=== PATIENT | male | born 1955 | race Caucasian/White ===

== ENCOUNTER 2018-01-13 10:55 | Observation (INO) | payer OTHER ==
--- NOTE | 2018-01-13 11:39 | EDM.PDOC ---
ED HPI GENERAL MEDICAL PROBLEM - General Chief Complaint: Back Pain or Injury Stated Complaint: BACK PAIN Time Seen by Provider: 01/13/18 11:34 Source of Information: Reports: Patient History Limitations: Reports: No Limitations - History of Present Illness INITIAL COMMENTS - FREE TEXT/NARRATIVE: HISTORY AND PHYSICAL: History of present illness: Patient is a 62-year-old male who presents to the emergency room with complaints of low back pain. 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 Since that time he has been to the walk-in clinic and has not found any relief with the over-the- counter medications he's been instructed to use. He denies any urinary or fecal incontinence associated with this back pain. Prior to today he was ambulatory. He states he feels like he could walk but does have a lot of pain with any movement. Patient states that this morning he was unable to get out of bed and called EMS. EMS gave him Zofran and Toradol via IV prior to arrival. Review of systems: As per history of present illness and below otherwise all systems reviewed and negative. Past medical history: As per history of present illness and as reviewed below otherwise noncontributory. Surgical history: As per history of present illness and as reviewed below otherwise noncontributory. Social history: No reported history of drug or alcohol abuse. Family history: As per history of present illness and as reviewed below otherwise noncontributory. Physical exam: General: Developed and well-nourished 62-year-old male. Alert and oriented. Nontoxic appearing and in no acute distress. HEENT: Atraumatic, normocephalic, pupils equal and reactive bilaterally, negative for conjunctival pallor or scleral icterus, mucous membranes moist, throat clear, neck supple, nontender, trachea midline. No drooling or trismus noted. No meningeal signs Lungs: Clear to auscultation, breath sounds equal bilaterally, chest nontender. Heart: S1S2, regular rate and rhythm without overt murmur Abdomen: Soft, nondistended, nontender. Negative for masses or hepatosplenomegaly. Negative for costovertebral tenderness. Pelvis: Stable nontender. Genitourinary: Deferred. Rectal: No urinary or fecal incontinence. Skin: Intact, warm, dry. No lesions or rashes noted. C-spine/Back: No pinpoint vertebral tenderness upon palpation. No crepitus, step -offs or obvious deformities. Does have musculoskeletal tenderness to the lumbar region bilaterally. Extremities: Atraumatic, moves all per self, negative for cords or calf pain. Neurovascular unremarkable. Neuro: Awake, alert, oriented. Cranial nerves II through XII unremarkable. Cerebellum unremarkable. Motor and sensory unremarkable throughout. Exam nonfocal. Notes: Patient is very dramatic and yelling and moaning out for help. We did give him IM Norflex to help alleviate his discomfort. Will do a CT of his lumbar spine. Reports he had no relief with the Toradol (given by EMS) or Norflex (given here) . Will give some morphine and perform some routine lab work is declining to get up and move around to assess his ambulation. 1320: Dr. Mendosa was consult on this case and is agreeable to keeping this patient for observation. Diagnostics: CBC, CMP, UA, Drug Screen, Lumbar spine CT Therapeutics: Norflex IM, Morphine Impression: Intractable low back pain Plan: MedSurg observation Definitive disposition and diagnosis as appropriate pending reevaluation and review of above. Duration: Week(s): Location: Reports: Back back Pain Score (Numeric/FACES): 9 - Related Data Allergies Allergy/AdvReac Type Severity Reaction Status Date / Time Sulfa (Sulfonamide Allergy Hives Verified 01/13/18 10:57 Antibiotics) Home Meds: Home Meds Methocarbamol 01/13/18 [History] Past Medical History Cardiovascular History: Reports: Hypertension - Infectious Disease History Infectious Disease History: Reports: Chicken Pox Social & Family History - Family History Family Medical History: Noncontributory - Tobacco Use Smoking Status *Q: Never Smoker - Recreational Drug Use Recreational Drug Use: No ED ROS GENERAL - Review of Systems Review Of Systems: ROS reveals no pertinent complaints other than HPI. ED EXAM,LOWER BACK PAIN/INJURY - Physical Exam Exam: See Below (See dictation) Course - Vital Signs Last Recorded V/S: Last Vital Signs Temp 97.0 F 01/13/18 10:57 Pulse 51 L 01/13/18 12:24 Resp 16 01/13/18 12:24 BP 152/87 H 01/13/18 12:24 Pulse Ox 97 01/13/18 12:24 - Orders/Labs/Meds Orders: Active Orders 24 hr Category Date Time Status CBC WITH AUTO DIFF [HEME] Stat Lab 01/13/18 12:31 Ordered CMP [COMPREHENSIVE METABOLIC PN,CMP] [CHEM] Stat Lab 01/13/18 12:31 Ordered DRUG SCREEN, URINE [URCHEM] Stat Lab 01/13/18 12:57 Ordered UA W/MICROSCOPIC [URIN] Stat Lab 01/13/18 12:57 Ordered Sodium Chloride 0.9% [Normal Saline] 1,000 ml Med 01/13/18 12:30 Active IV STAT Medication Orders Sodium Chloride (Normal Saline) 1,000 mls @ 999 mls/hr IV STAT ONE Stop: 01/13/18 13:30 Labs: Laboratory Tests 01/13/18 Range/Units 12:57 Urine Color YELLOW Urine Appearance CLEAR Urine pH 5.5 (5.0-8.0) Ur Specific [place] >= 1.030 (1.001-1.035) Urine Protein NEGATIVE (NEGATIVE) mg/dL Urine Glucose (UA) NEGATIVE (NEGATIVE) mg/dL Urine Ketones NEGATIVE (NEGATIVE) mg/dL Urine Occult Blood NEGATIVE (NEGATIVE) Urine Nitrite NEGATIVE (NEGATIVE) Urine Bilirubin NEGATIVE (NEGATIVE) Urine Urobilinogen 0.2 (<2.0) EU/dL Ur Leukocyte Esterase NEGATIVE (NEGATIVE) Urine RBC 0-1 (0-2/HPF) Urine WBC 0-1 (0-5/HPF) Ur Epithelial Cells RARE (NONE-FEW) Urine Bacteria RARE (NEGATIVE) Meds: Medications Generic Name Dose Route Start Last Admin Trade Name Freq PRN Reason Stop Dose Admin Sodium Chloride 1,000 mls @ 999 mls/hr 01/13/18 12:30 Normal Saline IV 01/13/18 13:30 STAT ONE Discontinued Medications Generic Name Dose Route Start Last Admin Trade Name Freq PRN Reason Stop Dose Admin Morphine Sulfate 4 mg 01/13/18 12:16 01/13/18 12:20 Morphine IVPUSH 01/13/18 12:17 4 mg ONETIME ONE Administration Morphine Sulfate Confirm 01/13/18 12:18 01/13/18 12:24 Morphine Administered 01/13/18 12:19 Not Given Dose 4 mg .ROUTE .STK-MED ONE Orphenadrine Citrate 60 mg 01/13/18 11:03 01/13/18 11:07 Norflex IM 01/13/18 11:04 60 mg NOW STA Administration Departure - Departure Time of Disposition: 13:18 Disposition: Refer to Observation Clinical Impression: Intractable low back pain - Discharge Information Forms: ED Department Discharge - My Orders Last 24 Hours: My Active Orders 01/13/18 12:30 Sodium Chloride 0.9% [Normal Saline] 1,000 ml IV STAT 01/13/18 12:31 CBC WITH AUTO DIFF [HEME] Stat CMP [COMPREHENSIVE METABOLIC PN,CMP] [CHEM] Stat 01/13/18 12:57 DRUG SCREEN, URINE [URCHEM] Stat UA W/MICROSCOPIC [URIN] Stat - Assessment/Plan Last 24 Hours: My Active Orders 01/13/18 12:30 Sodium Chloride 0.9% [Normal Saline] 1,000 ml IV STAT 01/13/18 12:31 CBC WITH AUTO DIFF [HEME] Stat CMP [COMPREHENSIVE METABOLIC PN,CMP] [CHEM] Stat 01/13/18 12:57 DRUG SCREEN, URINE [URCHEM] Stat UA W/MICROSCOPIC [URIN] Stat
[2018-01-13] MEDS ORDERED: Morphine 4 MG/ML Syringe IVPUSH ONE (12:16)
[2018-01-13] MEDS ORDERED: Morphine 4 MG/ML Syringe ONE (12:18)
--- NOTE | 2018-01-13 12:19 | CT ---
EXAMINATION: CT lumbar spine without contrast HISTORY: Pain COMPARISON: None TECHNIQUE: Axial CT images obtained through the lumbar spine without contrast. Coronal and sagittal r econstructions obtained. FINDINGS: The lumbar spinal alignment is normal. The vertebral body heights and disc spaces appear we ll-maintained. There is no fracture or acute osseous abnormality. Bone mineralization is normal. Mild marginal osteophyte formation is noted. Small osteophyte disc complex noted at L5-S1. SI joints are symmetric. 3 mm nonobstructing stone within the right kidney. IMPRESSION: 1. Mild degenerative changes noted within the lumbar spine without acute findings. 2. Nonobstructing right nephrolithiasis.
[2018-01-13] MEDS ORDERED: Sodium Chloride 0.9% 1,000 ML IV ONE (12:30)
[2018-01-13] MEDS ORDERED: Ondansetron 4 MG Tab.DIS PO PRN (15:05)
--- NOTE | 2018-01-13 15:21 | PCM.HP ---
H&P History of Present Illness - General Date of Service: 01/13/18 Admit Problem/Dx: Admission Diagnosis/Problem Admission Diagnosis/Problem Intractable back pain Source of Information: Patient History Limitations: Reports: No Limitations - History of Present Illness Initial Comments - Free Text/Narative: 62-year-old male that is being admitted with intractable low back pain. 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 He had a day or so when he got slightly better following that injury but notes that over the last few days the low back pain has gotten worse to the point where he was unable to walk this morning. He called EMS and had them bring him into the ER. He denies any changes in bowel or bladder habits. He denies any numbness/tingling/weakness down into the legs bilaterally. He denies any saddle paresthesia. No prior low back surgery great patient cannot recall any other traumas. He did see a chiropractor for a low back adjustment and this did not help. He was also seen at the walk-in clinic and given a shot of Toradol and a prescription of muscle relaxants which have not helped. Patient notes that lying flat on his back relieves the pain. Sitting, standing or any other movement seems to aggravate the pain. Patient denies any fevers. He denies any neck pain or other joint pain. He denies any other acute concerns including chest pain, palpitations, shortness of breath, wheezing, cough, abdominal pain, nausea, vomiting, constipation, diarrhea. ER course: CBC, CMP, urine tox screen, UA and vital signs were all unremarkable. Patient did have a lumbar CT done and that showed degenerative changes without any acute findings. Patient was given an IV dose of morphine and an IM dose of Norflex which did help alleviate his pain. He is also given an IV fluid bolus. back Pain Score (Numeric/FACES): 9 - Related Data Allergies/Adverse Reactions: Allergies Allergy/AdvReac Type Severity Reaction Status Date / Time Sulfa (Sulfonamide Allergy Hives Verified 01/13/18 10:57 Antibiotics) Home Medications: Home Meds Methocarbamol 01/13/18 [History] Past Medical History Cardiovascular History: Reports: Hypertension - Infectious Disease History Infectious Disease History: Reports: Chicken Pox Social & Family History - Family History Family Medical History: Noncontributory - Tobacco Use Smoking Status *Q: Never Smoker - Recreational Drug Use Recreational Drug Use: No H&P Review of Systems - Review of Systems: Review Of Systems: See Below General: Reports: No Symptoms HEENT: Reports: No Symptoms Pulmonary: Reports: No Symptoms Cardiovascular: Reports: No Symptoms Gastrointestinal: Reports: No Symptoms Genitourinary: Reports: No Symptoms Musculoskeletal: Reports: Back Pain, Other (Patient cannot ambulate secondary to low back pain.) Skin: Reports: No Symptoms Psychiatric: Reports: No Symptoms Neurological: Reports: No Symptoms Hematologic/Lymphatic: Reports: No Symptoms Immunologic: Reports: No Symptoms Exam - Exam Exam: See Below - Vital Signs Vital Signs: Last Vital Signs Temp 96.9 F 01/13/18 14:50 Pulse 43 L 01/13/18 14:50 Resp 16 01/13/18 14:50 BP 138/68 01/13/18 14:50 Pulse Ox 97 01/13/18 14:50 Weight: 551 lb 2.49 oz - Exam General: Alert, Oriented, Cooperative Neck: Supple, Trachea Midline, 2 Lungs: Clear to Auscultation, Normal Respiratory Effort Cardiovascular: Regular Rate, Regular Rhythm GI/Abdominal Exam: Normal Bowel Sounds, Soft, Non-Tender, No Organomegaly, No Distention, No Abnormal Bruit, No Mass, Pelvis Stable Back Exam: Normal Inspection, Full Range of Motion, Other (Tenderness with palpation of the paraspinal muscles bilaterally. No bony defects or step-off defects appreciated.). No: CVA Tenderness (L), CVA Tenderness (R) Extremities: Normal Inspection, Normal Range of Motion, Non-Tender, No Pedal Edema, Normal Capillary Refill Peripheral Pulses: 2+: Radial (L), Radial (R), Posterior Tibial (L), Posterior Tibial (R) Skin: Warm, Dry, Intact Neuro Extensive - Mental Status: Alert, Oriented x3, Normal Mood/Affect, Normal Cognition Psychiatric: Alert, Normal Affect, Normal Mood - Patient Data Lab Results Last 24 hrs: Laboratory Results - last 24 hr 01/13/18 01/13/18 01/13/18 Range/Units 12:57 12:57 13:50 WBC 5.86 (4.0-11.0) K/uL RBC 5.02 (4.50-5.90) M/uL Hgb 15.6 (13.0-17.0) g/dL Hct 45.4 (38.0-50.0) % MCV 90.4 (80.0-98.0) fL MCH 31.1 (27.0-32.0) pg MCHC 34.4 (31.0-37.0) g/dL RDW Std Deviation 41.5 (28.0-62.0) fl RDW Coeff of Ilsa 13 (11.0-15.0) % Plt Count 180 (150-400) K/uL MPV 10.20 (7.40-12.00) fL Neut % (Auto) 59.2 (48.0-80.0) % Lymph % (Auto) 29.4 (16.0-40.0) % [place] % (Auto) 7.8 (0.0-15.0) % Eos % (Auto) 2.7 (0.0-7.0) % Baso % (Auto) 0.9 (0.0-1.5) % Neut # (Auto) 3.5 (1.4-5.7) K/uL Lymph # (Auto) 1.7 (0.6-2.4) K/uL [place] # (Auto) 0.5 (0.0-0.8) K/uL Eos # (Auto) 0.2 (0.0-0.7) K/uL Baso # (Auto) 0.1 (0.0-0.1) K/uL Nucleated RBC % 0.0 /100WBC Nucleated RBCs # 0 K/uL Sodium (136-148) mmol/L Potassium (3.5-5.1) mmol/L Chloride (98-107) mmol/L Carbon Dioxide (21.0-32.0) mmol/L BUN (7.0-18.0) mg/dL Creatinine (0.8-1.3) mg/dL Est Cr Clr Drug Dosing mL/min Estimated GFR (MDRD) ml/min Glucose (74-106) mg/dL Calcium (8.5-10.1) mg/dL Total Bilirubin (0.2-1.0) mg/dL AST (15-37) IU/L ALT (14-63) IU/L Alkaline Phosphatase (46-116) U/L Total Protein (6.4-8.2) g/dL Albumin (3.4-5.0) g/dL Globulin (2.0-3.5) g/dL Albumin/Globulin Ratio (1.3-2.8) Urine Color YELLOW Urine Appearance CLEAR Urine pH 5.5 (5.0-8.0) Ur Specific [place] >= 1.030 (1.001-1.035) Urine Protein NEGATIVE (NEGATIVE) mg/dL Urine Glucose (UA) NEGATIVE (NEGATIVE) mg/dL Urine Ketones NEGATIVE (NEGATIVE) mg/dL Urine Occult Blood NEGATIVE (NEGATIVE) Urine Nitrite NEGATIVE (NEGATIVE) Urine Bilirubin NEGATIVE (NEGATIVE) Urine Urobilinogen 0.2 (<2.0) EU/dL Ur Leukocyte Esterase NEGATIVE (NEGATIVE) Urine RBC 0-1 (0-2/HPF) Urine WBC 0-1 (0-5/HPF) Ur Epithelial Cells RARE (NONE-FEW) Urine Bacteria RARE (NEGATIVE) Urine Opiates Screen NEGATIVE (NEGATIVE) Ur Oxycodone Screen NEGATIVE (NEGATIVE) Urine Methadone Screen NEGATIVE (NEGATIVE) Ur Barbiturates Screen NEGATIVE (NEGATIVE) Ur Phencyclidine Scrn NEGATIVE (NEGATIVE) Ur Amphetamine Screen NEGATIVE (NEGATIVE) U Methamphetamines Scrn NEGATIVE (NEGATIVE) U Benzodiazepines Scrn NEGATIVE (NEGATIVE) U Cocaine Metab Screen NEGATIVE (NEGATIVE) U Marijuana (THC) Screen NEGATIVE (NEGATIVE) 01/13/18 Range/Units 13:50 WBC (4.0-11.0) K/uL RBC (4.50-5.90) M/uL Hgb (13.0-17.0) g/dL Hct (38.0-50.0) % MCV (80.0-98.0) fL MCH (27.0-32.0) pg MCHC (31.0-37.0) g/dL RDW Std Deviation (28.0-62.0) fl RDW Coeff of Ilsa (11.0-15.0) % Plt Count (150-400) K/uL MPV (7.40-12.00) fL Neut % (Auto) (48.0-80.0) % Lymph % (Auto) (16.0-40.0) % [place] % (Auto) (0.0-15.0) % Eos % (Auto) (0.0-7.0) % Baso % (Auto) (0.0-1.5) % Neut # (Auto) (1.4-5.7) K/uL Lymph # (Auto) (0.6-2.4) K/uL [place] # (Auto) (0.0-0.8) K/uL Eos # (Auto) (0.0-0.7) K/uL Baso # (Auto) (0.0-0.1) K/uL Nucleated RBC % /100WBC Nucleated RBCs # K/uL Sodium 144 (136-148) mmol/L Potassium 4.8 (3.5-5.1) mmol/L Chloride 110 H (98-107) mmol/L Carbon Dioxide 28.2 (21.0-32.0) mmol/L BUN 16 (7.0-18.0) mg/dL Creatinine 1.3 (0.8-1.3) mg/dL Est Cr Clr Drug Dosing 64.36 mL/min Estimated GFR (MDRD) 56.3 ml/min Glucose 118 H (74-106) mg/dL Calcium 8.5 (8.5-10.1) mg/dL Total Bilirubin 0.7 (0.2-1.0) mg/dL AST 24 (15-37) IU/L ALT 27 (14-63) IU/L Alkaline Phosphatase 87 (46-116) U/L Total Protein 6.4 (6.4-8.2) g/dL Albumin 3.6 (3.4-5.0) g/dL Globulin 2.8 (2.0-3.5) g/dL Albumin/Globulin Ratio 1.3 (1.3-2.8) Urine Color Urine Appearance Urine pH (5.0-8.0) Ur Specific [place] (1.001-1.035) Urine Protein (NEGATIVE) mg/dL Urine Glucose (UA) (NEGATIVE) mg/dL Urine Ketones (NEGATIVE) mg/dL Urine Occult Blood (NEGATIVE) Urine Nitrite (NEGATIVE) Urine Bilirubin (NEGATIVE) Urine Urobilinogen (<2.0) EU/dL Ur Leukocyte Esterase (NEGATIVE) Urine RBC (0-2/HPF) Urine WBC (0-5/HPF) Ur Epithelial Cells (NONE-FEW) Urine Bacteria (NEGATIVE) Urine Opiates Screen (NEGATIVE) Ur Oxycodone Screen (NEGATIVE) Urine Methadone Screen (NEGATIVE) Ur Barbiturates Screen (NEGATIVE) Ur Phencyclidine Scrn (NEGATIVE) Ur Amphetamine Screen (NEGATIVE) U Methamphetamines Scrn (NEGATIVE) U Benzodiazepines Scrn (NEGATIVE) U Cocaine Metab Screen (NEGATIVE) U Marijuana (THC) Screen (NEGATIVE) Result Diagrams: 01/13/18 13:50 01/13/18 13:50 - Problem List (1) Intractable low back pain SNOMED Code(s): 87198510108805736 ICD Code: M54.5 - LOW BACK PAIN Status: Acute Current Visit: Yes Problem List Initiated/Reviewed/Updated: Yes Orders Last 24hrs: Active Orders 24 hr Category Date Time Status Admission Status [Patient Status] [ADT] Stat ADT 01/13/18 13:19 Active Height and Weight [RC] DAILY Care 01/13/18 15:05 Ordered Intake and Output [RC] QSHIFT Care 01/13/18 15:06 Ordered Notify Provider Vital Signs [RC] ASDIRECTED Care 01/13/18 15:06 Ordered Oxygen Therapy [RC] PRN Care 01/13/18 15:05 Ordered Pulse Oximetry [RC] CONTINUOUS Care 01/13/18 15:06 Ordered Up With Assistance [RC] ASDIRECTED Care 01/13/18 15:05 Ordered VTE/DVT Education [RC] PER UNIT ROUTINE Care 01/13/18 15:05 Ordered Vital Signs [RC] Q4H Care 01/13/18 15:05 Ordered Consult to Physical Therapy [PT Evaluation and Cons 01/13/18 14:54 Active Treatment] [CONS] Routine Regular Diet [DIET] Diet 01/13/18 Breakfast Ordered DRUG SCREEN, URINE [URCHEM] Stat Lab 01/13/18 12:57 Ordered UA W/MICROSCOPIC [URIN] Stat Lab 01/13/18 12:57 Ordered Acetaminophen [Tylenol] Med 01/13/18 15:05 Ordered 650 mg PO Q4H PRN Heparin Sodium Med 01/13/18 15:15 Ordered 5,000 units SUBCUT Q12H Ondansetron [Zofran ODT] Med 01/13/18 15:05 Ordered 4 mg PO Q4H PRN Sequential Compression Device [OM.PC] Per Unit Routine Oth 01/13/18 15:09 Ordered Resuscitation Status Routine Resus Stat 01/13/18 15:05 Ordered Medication Orders Acetaminophen (Tylenol) 650 mg PO Q4H PRN PRN Reason: Pain (Mild 1-3)/fever Heparin Sodium (Porcine) (Heparin Sodium) 5,000 units SUBCUT Q12H DENISE Ondansetron HCl (Zofran Odt) 4 mg PO Q4H PRN PRN Reason: nausea, able to take PO Assessment/Plan Comment:: 62-year-old male with intractable low back pain. #1. Intractable low back pain: -Lumbar CT was done and showed degenerative changes but no acute findings. -CBC, CMP, UA, urine drug screen were all unremarkable. Patient was given IV morphine and IM Norflex in the ER which has helped lessen his low back pain. -Tylenol be available to the patient for pain management. Patient will also be started on prednisone 20 mg to help with inflammation. -PT will work with the patient and we'll follow their recommendations. DVT prophylaxis: SCDs and heparin Disposition: 1-2 days pending improvement.
[2018-01-13] MEDS: Acetaminophen 325 MG Tab PO PRN ×2 (15:26→20:15)
[2018-01-13] MEDS: Heparin Sodium 5,000 Units/ML Vial SUBCUT SCH (15:26)
[2018-01-13] MEDS: predniSONE 20 MG Tab PO SCH (15:39)
[2018-01-13] MEDS: Cyclobenzaprine 5 MG Tab PO PRN (22:40)
[2018-01-14] MEDS: Acetaminophen 325 MG Tab PO PRN ×2 (00:12→06:59)
[2018-01-14] MEDS: Heparin Sodium 5,000 Units/ML Vial SUBCUT SCH (03:52)
[2018-01-14] MEDS: predniSONE 20 MG Tab PO SCH (09:49)
[2018-01-14] MEDS: Cyclobenzaprine 5 MG Tab PO PRN (10:27)
--- NOTE | 2018-01-14 13:42 | PCM.DCSUM1 ---
Discharge Summary - Discharge Data Discharge Date: 01/14/18 Discharge Disposition: Home, Self-Care 01 Condition: Good - Patient Summary/Data Consults: Consultations 01/13/18 14:54 Consult to Physical Therapy [PT Evaluation and Treatment] [CONS] Routine Hospital Course: 62-year-old male admitted with intractable low back pain. 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 He had a day or so when he got slightly better following that injury but notes that over the last few days the low back pain has gotten worse to the point where he was unable to walk. CBC, CMP, urine tox screen, UA and vital signs were all unremarkable. Patient did have a lumbar CT done and that showed degenerative changes without any acute findings. Patient was given one dose of IV dose of morphine and an IM dose of Norflex and was monitored overnight. This morning he is ambulatory and was evaluated by physical therapy who recommended outpatient PT. Patient was discharged home. - Patient Instructions Diet: Regular Diet as Tolerated - Discharge Plan Prescriptions/Med Rec: Ibuprofen 400 mg PO Q6H #1 tablet Home Medications: Home Meds Methocarbamol 01/13/18 [History] Acetaminophen [Tylenol] 650 mg PO Q6HR PRN tablet 01/14/18 [Rx] Ibuprofen 400 mg PO Q6H #1 tablet 01/14/18 [Rx] Forms: ED Department Discharge Referrals: PCP,None [Primary Care Provider] - - Patient Data Vitals - Most Recent: Last Vital Signs Temp 36.3 C 01/14/18 11:41 Pulse 55 L 01/14/18 11:41 Resp 18 01/14/18 11:41 BP 180/100 H 01/14/18 12:00 Pulse Ox 94 L 01/14/18 11:41 Weight - Most Recent: 113.58 kg I&O - Last 24 hours: Intake & Output 01/13/18 01/14/18 01/14/18 22:59 06:59 14:59 Intake Total 450 820 Output Total 0 1120 Balance 450 -300 Lab Results - Last 24 hrs: Laboratory Results - last 24 hr 01/13/18 01/13/18 Range/Units 13:50 13:50 WBC 5.86 (4.0-11.0) K/uL RBC 5.02 (4.50-5.90) M/uL Hgb 15.6 (13.0-17.0) g/dL Hct 45.4 (38.0-50.0) % MCV 90.4 (80.0-98.0) fL MCH 31.1 (27.0-32.0) pg MCHC 34.4 (31.0-37.0) g/dL RDW Std Deviation 41.5 (28.0-62.0) fl RDW Coeff of Ilsa 13 (11.0-15.0) % Plt Count 180 (150-400) K/uL MPV 10.20 (7.40-12.00) fL Neut % (Auto) 59.2 (48.0-80.0) % Lymph % (Auto) 29.4 (16.0-40.0) % [place] % (Auto) 7.8 (0.0-15.0) % Eos % (Auto) 2.7 (0.0-7.0) % Baso % (Auto) 0.9 (0.0-1.5) % Neut # (Auto) 3.5 (1.4-5.7) K/uL Lymph # (Auto) 1.7 (0.6-2.4) K/uL [place] # (Auto) 0.5 (0.0-0.8) K/uL Eos # (Auto) 0.2 (0.0-0.7) K/uL Baso # (Auto) 0.1 (0.0-0.1) K/uL Nucleated RBC % 0.0 /100WBC Nucleated RBCs # 0 K/uL Sodium 144 (136-148) mmol/L Potassium 4.8 (3.5-5.1) mmol/L Chloride 110 H (98-107) mmol/L Carbon Dioxide 28.2 (21.0-32.0) mmol/L BUN 16 (7.0-18.0) mg/dL Creatinine 1.3 (0.8-1.3) mg/dL Est Cr Clr Drug Dosing 64.36 mL/min Estimated GFR (MDRD) 56.3 ml/min Glucose 118 H (74-106) mg/dL Calcium 8.5 (8.5-10.1) mg/dL Total Bilirubin 0.7 (0.2-1.0) mg/dL AST 24 (15-37) IU/L ALT 27 (14-63) IU/L Alkaline Phosphatase 87 (46-116) U/L Total Protein 6.4 (6.4-8.2) g/dL Albumin 3.6 (3.4-5.0) g/dL Globulin 2.8 (2.0-3.5) g/dL Albumin/Globulin Ratio 1.3 (1.3-2.8) Med Orders - Current: Current Medications Acetaminophen (Tylenol) 650 mg PO Q4H PRN PRN Reason: Pain (Mild 1-3)/fever Last Admin: 01/14/18 06:59 Dose: 650 mg Cyclobenzaprine HCl (Flexeril) 5 mg PO TID PRN PRN Reason: Pain Last Admin: 01/14/18 10:27 Dose: 5 mg Heparin Sodium (Porcine) (Heparin Sodium) 5,000 units SUBCUT Q12H DENISE Last Admin: 01/14/18 03:52 Dose: 5,000 units Ondansetron HCl (Zofran Odt) 4 mg PO Q4H PRN PRN Reason: nausea, able to take PO Prednisone (Prednisone) 20 mg PO DAILY DENISE Last Admin: 01/14/18 09:49 Dose: 20 mg Discontinued Medications Sodium Chloride (Normal Saline) 1,000 mls @ 999 mls/hr IV STAT ONE Stop: 01/13/18 13:30 Last Admin: 01/13/18 13:18 Dose: 999 mls/hr Morphine Sulfate (Morphine) 4 mg IVPUSH ONETIME ONE Stop: 01/13/18 12:17 Last Admin: 01/13/18 12:20 Dose: 4 mg Morphine Sulfate (Morphine) Confirm Administered Dose 4 mg .ROUTE .STK-MED ONE Stop: 01/13/18 12:19 Last Admin: 01/13/18 12:24 Dose: Not Given Orphenadrine Citrate (Norflex) 60 mg IM NOW STA Stop: 01/13/18 11:04 Last Admin: 01/13/18 11:07 Dose: 60 mg
== END 2018-01-14 14:20 | disposition home or self-care (01) ==
LOC: MW.ED 10:55 → MW.MS 13:55
PROVIDERS: ADMIT Internal Medicine; ATTEND Internal Medicine
DX: M54.5 Low back pain (principal); M51.36 Other intervertebral disc degeneration, lumbar region; I10 Essential (primary) hypertension; N20.0 Calculus of kidney; Z79.899 Other long term (current) drug therapy; Z88.2 Allergy status to sulfonamides
CPT/HCPCS: 36415; 72131; 80053; 80305; 81001; 85025; 96361; 96372; 96374; 97140; 97161; 99285; A9270; J1644; J2270; J2360; J7040; G0378